=== PATIENT | female | born 1995 | race African-American/Black ===

== ENCOUNTER 2017-12-24 22:05 | Emergency (ER) | payer BC ==
[2017-12-24 23:22] LABS: Urine Blood NEGATIVE (NEG); Urine Glucose NEGATIVE (NEG); Urine Protein NEGATIVE (NEG)
[2017-12-24] MEDS ORDERED: CEFTRIAXONE 250 MG/VIAL ONE (23:40)
[2017-12-24] MEDS ORDERED: AZITHROMYCIN 250 MG TAB ONE (23:40)
[2017-12-24] MEDS ORDERED: WATER FOR INJ,STERILE 10 ML ONE (23:45)
--- NOTE | 2017-12-24 23:52 | ER ---
Nurse's Notes [facility] Name: Adi Sawant Age: 22 yrs Sex: Female : 1995 Arrival Date: 12/24/2017 Time: 22:10 Bed 24 Private MD: Diagnosis: vaginal discharge Presentation: 12/24 22:35 Presenting complaint: Patient states: she has vaginal discharge with a foul odor since bb last Wednesday also has suprapubic pain denies burning or frequency with urination. Transition of care: patient was not received from another setting of care. Onset of symptoms was December 18, 2017. Initial Sepsis Screen: Does the patient meet any 2 criteria? No. Patient's initial sepsis screen is negative. Does the patient have a suspected source of infection? No. Patient's initial sepsis screen is negative. Care prior to arrival: None. 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 - Social history:: Smoking status: Patient/guardian denies using tobacco, Patient uses alcohol, occasionally. Patient/guardian denies using street drugs. Screenin:52 Abuse screen: Denies threats or abuse. Nutritional screening: No deficits noted. aj1 Tuberculosis screening: No symptoms or risk factors identified. Fall Risk None identified. Assessment: 23:52 General: Appears in no apparent distress. comfortable, Behavior is calm, cooperative, aj1 appropriate for age. Pain: Denies pain. Neuro: Level of Consciousness is awake, alert, obeys commands, Oriented to person, place, time, situation. Cardiovascular: Denies chest pain, Heart tones S1 S2 present. Respiratory: Airway is patent Breath sounds are clear bilaterally. GI: Bowel sounds present X 4 quads. Abd is soft and non tender X 4 quads. : Parent/caregiver report the patient having discharge white. EENT: No deficits noted. Derm: No deficits noted. Musculoskeletal: No deficits noted. Vital Signs: 22:39 BP 121 / 75; Pulse 84; Resp 16 S; Temp 99.0(O); Pulse Ox 100% on R/A; Weight 72.57 kg bb (R); Height 5 ft. 10 in. (177.80 cm) (R); Pain 5/10; 23:56 BP 127 / 99; Pulse 88; Resp 18; Pulse Ox 100% ; Pain 0/10; aj1 12/25 00:05 BP 101 / 62; Pulse 88; Resp 18; Pulse Ox 98% ; Pain 0/10; ag2 12/24 22:39 Body Mass Index 22.96 (72.57 kg, 177.80 cm) ED Course: 12/24 22:10 Patient arrived in ED. ds1 22:29 Sana Laurent is Primary Nurse. ag2 22:39 Triage completed. bb 22:39 Arm band placed on Patient placed in an exam room, in a wheelchair, on pulse oximetry. bb 22:59 Adalberto Mckeon MD is Attending Physician. ps1 23:52 Patient has correct armband on for positive identification. Bed in low position. Call aj1 light in reach. Side rails up X2. 23:52 Assist provider with pelvic exam: Set up pelvic tray. Performed by Adalberto aguirre1 Specimens sent to lab. Patient tolerated well. Patient did not have IV access during this emergency room visit. Administered Medications: 23:50 Drug: AZITHromycin 1 grams Route: PO; aj1 12/25 00:05 Follow up: Response: No adverse reaction ag2 12/24 23:51 Drug: Rocephin (cefTRIAXone) 250 mg Route: IM; Site: left gluteus; aj1 12/25 00:06 Follow up: Response: No adverse reaction ag2 Outcome: 12/24 23:51 Discharge ordered by . ps1 12/25 00:07 Discharged to home ag2 Condition: good Discharge instructions given to patient, Instructed on discharge instructions, follow up and referral plans. medication usage, Demonstrated understanding of instructions, follow-up care, medications. 00:42 Patient left the ED. ag2 Signatures: Ilene Campos, RN RN aj1 Reyna Dang ds1 Alea Torre RN RN bb Singer, Phillip, MD MD ps1 Sana Laurent ag2
--- NOTE | 2017-12-24 23:52 | EDPHYS ---
Physician Documentation [facility] Name: Adi Sawant Age: 22 yrs Sex: Female : 1995 Arrival Date: 12/24/2017 Time: 22:10 Bed 24 Private MD: ED Physician Adalberto Mckeon HPI: 12/24 23:12 This 22 yrs old Black Female presents to ER via Ambulatory with complaints of Abdominal ps1 Pain. 23:12 The patient presents with a possible exposure to a sexually transmitted disease. Onset: ps1 The symptoms/episode began/occurred 2 day(s) ago. Associated signs and symptoms: Pertinent positives: vaginal discharge. The patient is sexually active, reports engaging in intercourse with a new partner, does not use protection during intercourse. 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 - Social history:: Smoking status: Patient/guardian denies using tobacco, Patient uses alcohol, occasionally. Patient/guardian denies using street drugs. ROS: 23:12 Constitutional: Negative for fever, chills, and weight loss, Eyes: Negative for injury, ps1 pain, redness, and discharge, ENT: Negative for injury, pain, and discharge, Cardiovascular: Negative for chest pain, palpitations, and edema, Respiratory: Negative for shortness of breath, cough, wheezing, and pleuritic chest pain, Abdomen/GI: Negative for abdominal pain, nausea, vomiting, diarrhea, and constipation. 23:12 Skin: Negative for injury, rash, and discoloration, Neuro: Negative for headache, weakness, numbness, tingling, and seizure. 23:12 : Positive for vaginal discharge. Exam: 23:12 Constitutional: This is a well developed, well nourished patient who is awake, alert, ps1 and in no acute distress. Head/Face: Normocephalic, atraumatic. Chest/axilla: Normal chest wall appearance and motion. Nontender with no deformity. No lesions are appreciated. Cardiovascular: Regular rate and rhythm. No gallops, murmurs, or rubs. Normal PMI, no JVD. No pulse deficits. Respiratory: Lungs have equal breath sounds bilaterally, clear to auscultation and percussion. No rales, rhonchi or wheezes noted. No increased work of breathing, no retractions or nasal flaring. Abdomen/GI: Soft, non-tender, with normal bowel sounds. No distension or tympany. No guarding or rebound. No evidence of tenderness throughout. Back: No spinal tenderness. No costovertebral tenderness. Full range of motion. 23:12 : Pelvic Exam: External exam: is normal, Speculum exam: no cervicitis, bimanual exam reveals normal findings, no cervical motion tenderness, no adnexa tenderness or masses bilaterally, discharge, white, the nurse was present for the exam. Vital Signs: 22:39 BP 121 / 75; Pulse 84; Resp 16 S; Temp 99.0(O); Pulse Ox 100% on R/A; Weight 72.57 kg bb (R); Height 5 ft. 10 in. (177.80 cm) (R); Pain 5/10; 23:56 BP 127 / 99; Pulse 88; Resp 18; Pulse Ox 100% ; Pain 0/10; aj1 12/25 00:05 BP 101 / 62; Pulse 88; Resp 18; Pulse Ox 98% ; Pain 0/10; ag2 12/24 22:39 Body Mass Index 22.96 (72.57 kg, 177.80 cm) bb MDM: 12/24 23:28 Patient medically screened. ps1 23:52 Data reviewed: lab test result(s). ED course: treated for suspected STD. Wetprep ps1 negative. . 12/24 22:43 Order name: Urine Dipstick--Ancillary (enter results); Complete Time: 23:28 2 12/24 22:43 Order name: Urine --Ancillary (enter results); Complete Time: 23:28 rg2 12/24 23:09 Order name: GC (GONORR/CHLAMYDIA) Probe ps1 12/24 23:09 Order name: Wet Prep; Complete Time: 23:47 ps1 12/24 23:09 Order name: Pelvic Exam Setup; Complete Time: 00:06 ps1 Administered Medications: 23:50 Drug: AZITHromycin 1 grams Route: PO; [facility] 12/25 00:05 Follow up: Response: No adverse reaction [facility] 12/24 23:51 Drug: Rocephin (cefTRIAXone) 250 mg Route: IM; Site: left gluteus; aj1 12/25 00:06 Follow up: Response: No adverse reaction ag2 Disposition: 12/24/17 23:51 Discharged to Home. Impression: vaginal discharge. - Condition is Stable. - Discharge Instructions: Sexually Transmitted Disease, [id number]. - Medication Reconciliation Form, Thank You Letter, Antibiotic Education, Prescription Opioid Use form. - Follow up: Private Physician; When: As needed; Reason: Recheck today's complaints, Continuance of care, Re-evaluation by your physician. Follow up: Emergency Department; When: As needed; Reason: Fever > 102 F, Worsening of condition. - Problem is new. - Symptoms are unchanged. Signatures: Dispatcher [employer] Ilene Barker, RN SABRINA aj1 Alea Torre RN RN bb Adalberto Mckeon MD MD ps1 Garcia, Athena ag2
[2017-12-31 08:53] LABS: C.trachomatis RNA,TMA ND
== END 2017-12-25 00:42 | disposition home or self-care (01) ==
LOC: ER 22:05
DX: N89.8 Other specified noninflammatory disorders of vagina (principal)
CPT/HCPCS: 81003; 81025; 87210; 87490; 87590; 96372; 99284; J0696

== ENCOUNTER 2018-04-25 19:32 | Emergency (ER) | payer BC, OTHER ==
[2018-04-25] MEDS ORDERED: WATER FOR INJ,STERILE 10 ML ONE (20:18)
[2018-04-25] MEDS ORDERED: metroNIDAZOLE 500 MG TABLET ONE (20:18)
[2018-04-25] MEDS ORDERED: CEFTRIAXONE 250 MG/VIAL ONE (20:18)
[2018-04-25] MEDS ORDERED: AZITHROMYCIN 250 MG TAB ONE (20:18)
--- NOTE | 2018-04-25 20:27 | EDPHYS ---
Physician Documentation [facility] Name: Adi Sawant Age: 22 yrs Sex: Female : 1995 Arrival Date: 04/25/2018 Time: 19:34 Bed 9 Private MD: ED Physician Elliot Lu HPI: 04/25 20:02 This 22 yrs old Black Female presents to ER via Ambulatory with complaints of vaginal jr8 odor . 20:02 Patient stated that she has had vaginal odor for about 1 week post intercourse. Denies jr8 discharge or urinary complaints. Recent depo shot and has had some cramping . Severity of symptoms: At their worst the symptoms were mild in the emergency department the symptoms are unchanged. The patient has experienced a previous episode. The patient has not recently seen a physician. 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 - Social history:: Smoking status: Patient/guardian denies using tobacco, Patient uses street drugs, marijuana. - Ebola Screening: : No symptoms or risks identified at this time. ROS: 20:02 Eyes: Negative for injury, pain, redness, and discharge, ENT: Negative for injury, jr8 pain, and discharge, Neck: Negative for injury, pain, and swelling, Cardiovascular: Negative for chest pain, palpitations, and edema, Respiratory: Negative for shortness of breath, cough, wheezing, and pleuritic chest pain, Back: Negative for injury and pain, MS/Extremity: Negative for injury and deformity, Skin: Negative for injury, rash, and discoloration, Neuro: Negative for headache, weakness, numbness, tingling, and seizure. 20:02 Abdomen/GI: Positive for abdominal cramps, Negative for nausea, vomiting, diarrhea, constipation, abdominal distension, anorexia, dysphagia, hematemesis, black/tarry stool, rectal pain, rectal bleeding, bowel incontinence, flatulence. 20:02 : Positive for vaginal odor, Negative for urinary symptoms, urinary frequency, small amounts, hematuria, pelvic pain, burning with urination, vaginal bleeding, vaginal discharge, vaginal itching, menstrual abnormality. Exam: 20:02 Eyes: Pupils equal round and reactive to light, extra-ocular motions intact. Lids and jr8 lashes normal. Conjunctiva and sclera are non-icteric and not injected. Cornea within normal limits. Periorbital areas with no swelling, redness, or edema. ENT: Nares patent. No nasal discharge, no septal abnormalities noted. Tympanic membranes are normal and external auditory canals are clear. Oropharynx with no redness, swelling, or masses, exudates, or evidence of obstruction, uvula midline. Mucous membranes moist. Neck: Trachea midline, no thyromegaly or masses palpated, and no cervical lymphadenopathy. Supple, full range of motion without nuchal rigidity, or vertebral point tenderness. No Meningismus. Cardiovascular: Regular rate and rhythm with a normal S1 and S2. No gallops, murmurs, or rubs. Normal PMI, no JVD. No pulse deficits. Respiratory: Lungs have equal breath sounds bilaterally, clear to auscultation and percussion. No rales, rhonchi or wheezes noted. No increased work of breathing, no retractions or nasal flaring. Abdomen/GI: Soft, non-tender, with normal bowel sounds. No distension or tympany. No guarding or rebound. No evidence of tenderness throughout. Back: No spinal tenderness. No costovertebral tenderness. Full range of motion. Skin: Warm, dry with normal turgor. Normal color with no rashes, no lesions, and no evidence of cellulitis. MS/ Extremity: Pulses equal, no cyanosis. Neurovascular intact. Full, normal range of motion. Neuro: Awake and alert, GCS 15, oriented to person, place, time, and situation. Cranial nerves II-XII grossly intact. Motor strength 5/5 in all extremities. Sensory grossly intact. Cerebellar exam normal. Normal gait. Vital Signs: 19:54 BP 123 / 80; Pulse 72; Resp 16; Temp 98.8(O); Pulse Ox 96% on R/A; Weight 68.04 kg (R); ak1 Height 5 ft. 10 in. (177.80 cm) (R); Pain 2/10; 19:54 Body Mass Index 21.52 (68.04 kg, 177.80 cm) ak1 MDM: 19:59 Patient medically screened. jr8 20:25 Data reviewed: vital signs, nurses notes, lab test result(s), and as a result, I will jr8 discharge patient. Data interpreted: Pulse oximetry: on room air is 96 %. Interpretation: normal. Counseling: I had a detailed discussion with the patient and/or guardian regarding: the historical points, exam findings, and any diagnostic results supporting the discharge/admit diagnosis, lab results, the need for outpatient follow up, a family practitioner, to return to the emergency department if symptoms worsen or persist or if there are any questions or concerns that arise at home. 04/25 20:01 Order name: GC (GONORR/CHLAMYDIA) Probe [facility] 04/25 20:01 Order name: Urine Dipstick-Ancillary (obtain specimen); Complete Time: 20:19 [facility] 04/25 20:01 Order name: Urine Test (obtain specimen); Complete Time: 20:19 [facility] Administered Medications: 20:18 Drug: Flagyl 2 grams Route: PO; aj 20:31 Follow up: Response: No adverse reaction aj 20:19 Drug: Zithromax 1 grams Route: PO; aj 20:31 Follow up: Response: No adverse reaction aj 20:19 Drug: Rocephin (cefTRIAXone) 250 mg Route: IM; Site: right gluteus; aj 20:31 Follow up: Response: No adverse reaction aj Disposition: 04/25/18 20:26 Discharged to Home. Impression: STD Prophylaxis . - Condition is Stable. - Discharge Instructions: Bacterial Vaginosis, Sexually Transmitted Disease. - Medication Reconciliation Form, Thank You Letter, Antibiotic Education, Prescription Opioid Use form. - Follow up: Private Physician; When: As needed; Reason: Recheck today's complaints, Continuance of care, Re-evaluation by your physician. - Problem is new. - Symptoms have improved. Addendum: 04/27/2018 05:28 Co-signature as Attending Physician, Elliot Lu MD I agree with the assessment and t w4 plan of care. Attestation: The patient's history, exam findings, diagnostics, and a summary of any interventions or procedures was reviewed in detail with Lucien ODELL. Signatures: Dispatcher [employer] Wilda Masters RN Lucien Ram PA PA jr8 Margoth Martinez RN RN [email or web address] Elliot Lu MD MD tw4 Corrections: (The following items were deleted from the chart) 04/25 20:31 20:26 04/25/2018 20:26 Discharged to Home. Impression: STD Prophylaxis . Condition is aj Stable. Forms are Medication Reconciliation Form, Thank You Letter, Antibiotic Education, Prescription Opioid Use. Follow up: Private Physician; When: As needed; Reason: Recheck today's complaints, Continuance of care, Re-evaluation by your physician. Problem is new. Symptoms have improved. jr8
--- NOTE | 2018-04-25 20:27 | ER ---
Nurse's Notes [facility] Name: Adi Sawant Age: 22 yrs Sex: Female : 1995 Arrival Date: 04/25/2018 Time: 19:34 Bed 9 Private MD: Diagnosis: STD Prophylaxis Presentation: 04/25 19:51 Presenting complaint: Patient states: vaginal odor X1 weeks s/p sex intercourse. pt ak1 denies vaginal discharge, no vaginal bleeding. pt c/o abd cramps intermittent. Transition of care: patient was not received from another setting of care. Onset of symptoms is unknown. Risk Assessment: Do you want to hurt yourself or someone else? Patient reports no desire to harm self or others. Initial Sepsis Screen: Does the patient meet any 2 criteria? No. Patient's initial sepsis screen is negative. Does the patient have a suspected source of infection? No. Patient's initial sepsis screen is negative. Care prior to arrival: None. 19:51 Method Of Arrival: Ambulatory ak1 19:51 Acuity: CARROL 4 ak1 Triage Assessment: 19:54 General: Appears in no apparent distress. Behavior is calm, cooperative. Pain: Denies ak1 pain. EENT: No signs and/or symptoms were reported regarding the EENT system. Neuro: No deficits noted. Cardiovascular: No deficits noted. Respiratory: No deficits noted. GI: Reports cramping. : Reports vaginal odor. Patient is sexually active Method of control is depo shot. Derm: No signs and/or symptoms reported regarding the dermatologic system. Musculoskeletal: No signs and/or symptoms reported regarding the musculoskeletal system. 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 - Social history:: Smoking status: Patient/guardian denies using tobacco, Patient uses street drugs, marijuana. - Ebola Screening: : No symptoms or risks identified at this time. Screenin:56 Abuse screen: Denies threats or abuse. Denies injuries from another. Nutritional ak1 screening: No deficits noted. Tuberculosis screening: No symptoms or risk factors identified. Fall Risk None identified. Assessment: 20:19 General: Appears in no apparent distress. comfortable, Behavior is calm, cooperative, aj appropriate for age. Neuro: Level of Consciousness is awake, alert, obeys commands, Oriented to person, place, time, situation, Appropriate for age. Respiratory: Airway is patent Respiratory effort is even, unlabored, Respiratory pattern is regular, symmetrical. GI: Abdomen is flat, non-distended, Bowel sounds present X 4 quads. Abd is soft and non tender. : Reports vaginal odor. Derm: Skin is intact, is healthy with good turgor, Skin is pink, warm \T\ dry. normal. Vital Signs: 19:54 BP 123 / 80; Pulse 72; Resp 16; Temp 98.8(O); Pulse Ox 96% on R/A; Weight 68.04 kg (R); ak1 Height 5 ft. 10 in. (177.80 cm) (R); Pain 2/10; 19:54 Body Mass Index 21.52 (68.04 kg, 177.80 cm) ak1 ED Course: 19:34 Patient arrived in ED. ds1 19:53 Triage completed. ak1 19:54 Arm band placed on Patient placed in an exam room, on a stretcher, Patient notified of ak1 wait time. 19:56 Patient has correct armband on for positive identification. ak1 19:59 Lucien Pagan PA is PHCP. jr8 19:59 Elliot Lu MD is Attending Physician. jr8 20:05 Wilda Roy, SABRINA is Primary Nurse. aj 20:21 No provider procedures requiring assistance completed. Patient did not have IV access aj during this emergency room visit. Administered Medications: 20:18 Drug: Flagyl 2 grams Route: PO; aj 20:31 Follow up: Response: No adverse reaction aj 20:19 Drug: Zithromax 1 grams Route: PO; aj 20:31 Follow up: Response: No adverse reaction aj 20:19 Drug: Rocephin (cefTRIAXone) 250 mg Route: IM; Site: right gluteus; aj 20:31 Follow up: Response: No adverse reaction aj Outcome: 20:26 Discharge ordered by . jr8 20:30 Discharged to home ambulatory. aj 20:30 Condition: good 20:30 Discharge instructions given to patient, Instructed on discharge instructions, follow up and referral plans. safe sex practices, Demonstrated understanding of instructions, follow-up care. 20:31 Patient left the ED. carla Signatures: Wilda Roy, RN RN Reyna Weathers ds1 Lucien Pagan PA PA jr8 Margoth Martinez RN RN ak1
[2018-04-25 21:43] LABS: Urine Blood NEGATIVE (NEG); Urine Glucose NEGATIVE (NEG); Urine Protein NEGATIVE (NEG)
[2018-04-28 12:13] LABS: C.trachomatis RNA,TMA Not Detected (Not Detected)
== END 2018-04-25 20:31 | disposition home or self-care (01) ==
LOC: ER 19:32
DX: A64 Unspecified sexually transmitted disease (principal)
CPT/HCPCS: 81003; 81025; 87490; 87590; 96372; 99283; J0696

== ENCOUNTER 2018-11-24 13:37 | Emergency (ER) | payer OTHER, SELFPAY ==
--- NOTE | 2018-11-24 14:29 | ER ---
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 Transition of care: patient was not received from another setting of care. Onset of symptoms was November 23, 2018. Risk Assessment: Do you want to hurt yourself or someone else? Patient reports no desire to harm self or others. Care prior to arrival: None. 13:54 Method Of Arrival: Ambulatory hb 13:54 Acuity: CARROL 4 hb Historical: - Allergies: 13:55 No Known Allergies; hb - PMHx: 13:55 None; hb - PSHx: 13:55 None; hb - Immunization history:: Adult Immunizations up to date. - Social history:: Smoking status: Patient/guardian denies using tobacco. - Ebola Screening: : No symptoms or risks identified at this time. Screenin:26 Abuse screen: Denies threats or abuse. Denies injuries from another. Nutritional ss screening: No deficits noted. Tuberculosis screening: No symptoms or risk factors identified. Never had TB. Fall Risk None identified. Assessment: 14:26 General: Appears in no apparent distress. comfortable, Behavior is calm, cooperative. ss Pain: Complains of pain in upper lip Pain currently is 4 out of 10 on a pain scale. Neuro: Level of Consciousness is awake, alert, obeys commands, Oriented to person, place, time, situation. Cardiovascular: Capillary refill < 3 seconds is brisk in bilateral fingers. Respiratory: Airway is patent Respiratory effort is even, unlabored, Respiratory pattern is regular, symmetrical. EENT: Nares are clear Oral mucosa is moist. Throat is clear. Derm: Skin is intact, is healthy with good turgor, Skin is dry, Skin is pink, warm \T\ dry. normal. Musculoskeletal: Circulation, motion, and sensation intact. Range of motion: intact in all extremities, Swelling absent. Vital Signs: 13:54 BP 124 / 72; Pulse 78; Resp 16; Temp 97.9; Pulse Ox 100% on R/A; Weight 78.93 kg; hb Height 5 ft. 10 in. (177.80 cm); Pain 4/10; 13:54 Body Mass Index 24.97 (78.93 kg, 177.80 cm) hb ED Course: 13:38 Patient arrived in ED. as 13:54 Triage completed. hb 13:55 Arm band placed on. hb 14:07 Keila Cardona FNP-C is [facility]. kb 14:07 Jorge Iraheta MD is Attending Physician. kb 14:26 Patient has correct armband on for positive identification. Bed in low position. Call ss light in reach. 14:26 No provider procedures requiring assistance completed. Patient did not have IV access ss during this emergency room visit. Administered Medications: No medications were administered Outcome: 14:28 Discharge ordered by . kb 14:36 Patient left the ED. ss Signatures: Keila Cardona FNP-C FNP-Ckb Martinez, Amelia as Carolyne Bonds RN RN Kasandra Duncan RN RN hb
--- NOTE | 2018-11-24 14:29 | EDPHYS ---
Physician Documentation [facility] Name: Adi Sawant Age: 23 yrs Sex: Female : 1995 Arrival Date: 11/24/2018 Time: 13:38 Bed 9 Private MD: ED Physician Jorge Iraheta HPI: 11/24 14:23 This 23 yrs old Black Female presents to ER via Ambulatory with complaints of Cold Sore.kb 14:23 The patient's rash thought to be caused by cold sore. The rash is located on the upper kb lip. The rash can be described as vesicular. Onset: The symptoms/episode began/occurred yesterday. Associated signs and symptoms: Pertinent positives: burning sensation, Pertinent negatives: difficulty breathing, fever, itching, nausea, Pain swelling of lips, swelling of throat, swelling of tongue, vomiting, wheezing. Severity of symptoms: At their worst the symptoms were mild in the emergency department the symptoms are unchanged. The patient has experienced similar episodes in the past. The patient has not recently seen a physician. Pt reports she gets cold sores a lot and one developed last night so she wanted to see if she could get something for it.. Historical: - Allergies: 13:55 No Known Allergies; hb - PMHx: 13:55 None; hb - PSHx: 13:55 None; hb - Immunization history:: Adult Immunizations up to date. - Social history:: Smoking status: Patient/guardian denies using tobacco. - Ebola Screening: : No symptoms or risks identified at this time. ROS: 14:23 Constitutional: Negative for fever, chills, and weight loss, Cardiovascular: Negative kb for chest pain, palpitations, and edema, Respiratory: Negative for shortness of breath, cough, wheezing, and pleuritic chest pain, Abdomen/GI: Negative for abdominal pain, nausea, vomiting, diarrhea, and constipation, MS/Extremity: Negative for injury and deformity, Neuro: Negative for headache, weakness, numbness, tingling, and seizure. 14:23 Skin: Positive for of the upper lip, cold sore. Exam: 14:24 Constitutional: This is a well developed, well nourished patient who is awake, alert, kb and in no acute distress. Head/Face: Normocephalic, atraumatic. Chest/axilla: Normal chest wall appearance and motion. Nontender with no deformity. No lesions are appreciated. Cardiovascular: Regular rate and rhythm with a normal S1 and S2. No gallops, murmurs, or rubs. Normal PMI, no JVD. No pulse deficits. Respiratory: Lungs have equal breath sounds bilaterally, clear to auscultation and percussion. No rales, rhonchi or wheezes noted. No increased work of breathing, no retractions or nasal flaring. Abdomen/GI: Soft, non-tender, with normal bowel sounds. No distension or tympany. No guarding or rebound. No evidence of tenderness throughout. MS/ Extremity: Pulses equal, no cyanosis. Neurovascular intact. Full, normal range of motion. Neuro: Awake and alert, GCS 15, oriented to person, place, time, and situation. Cranial nerves II-XII grossly intact. Motor strength 5/5 in all extremities. Sensory grossly intact. Cerebellar exam normal. Normal gait. 14:24 Skin: consistent with herpes simplex type 1, on the upper lip. Vital Signs: 13:54 BP 124 / 72; Pulse 78; Resp 16; Temp 97.9; Pulse Ox 100% on R/A; Weight 78.93 kg; hb Height 5 ft. 10 in. (177.80 cm); Pain 4/10; 13:54 Body Mass Index 24.97 (78.93 kg, 177.80 cm) hb MDM: 14:07 Patient medically screened. kb 14:25 Data reviewed: vital signs, nurses notes. Data interpreted: Pulse oximetry: on room air kb is 100 %. Interpretation: normal. Counseling: I had a detailed discussion with the patient and/or guardian regarding: the historical points, exam findings, and any diagnostic results supporting the discharge/admit diagnosis, the need for outpatient follow up, a family practitioner, to return to the emergency department if symptoms worsen or persist or if there are any questions or concerns that arise at home. Administered Medications: No medications were administered Disposition: 15:03 Co-signature as Attending Physician, Keila RUSS I agree with the assessment kdr and plan of care. Disposition: 11/24/18 14:28 Discharged to Home. 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 - Condition is Stable. - Discharge Instructions: Cold Sore, [id number]. - Work release form, Medication Reconciliation Form, Thank You Letter, Antibiotic Education, Prescription Opioid Use form. - Follow up: Emergency Department; When: As needed; Reason: Worsening of condition. Follow up: Private Physician; When: 2 - 3 days; Reason: Recheck today's complaints, Continuance of care, Re-evaluation by your physician. Signatures: Keila Cardona, URGENT CARE NURSE PRACTITIONER-C URGENT CARE NURSE PRACTITIONER-Edgardob Jorge Iraheta MD MD [facility] Carolyne Bonds RN RN Kasandra Duncan RN RN Corrections: (The following items were deleted from the chart) 14:36 14:28 11/24/2018 14:28 Discharged to Home. Impression: Herpesviral [herpes simplex] ss infections - HSV Type 1. Condition is Stable. Forms are Medication Reconciliation Form, Thank You Letter, Antibiotic Education, Prescription Opioid Use. Follow up: Emergency Department; When: As needed; Reason: Worsening of condition. Follow up: Private Physician; When: 2 - 3 days; Reason: Recheck today's complaints, Continuance of care, Re-evaluation by your physician. kb
== END 2018-11-24 14:36 | disposition home or self-care (01) ==
LOC: ER 13:37
DX: B00.1 Herpesviral vesicular dermatitis (principal)
CPT/HCPCS: 99281

== ENCOUNTER 2019-07-28 09:03 | Emergency (ER) | payer SELFPAY ==
--- OUTSIDE RECORDS SUMMARY | 2019-07-28 09:06 | XMS REPORT ---
:1995 [facility] Address [address] [place] [address] Dr. Roe [address] [place] [id number] Care Team Providers Name Role Phone Unavailable Unavailable Unavailable Problems This patient has no known problems. Allergies, Adverse Reactions, Alerts This patient has no known allergies or adverse reactions. Medications This patient has no known medications.
--- NOTE | 2019-07-28 11:05 | ER ---
Nurse's Notes [facility] Name: Adi Sawant Age: 23 yrs Sex: Female : 1995 Arrival Date: 07/28/2019 Time: 09:04 Bed 18 Private MD: Diagnosis: Diarrhea, unspecified Presentation: 07/28 09:18 Presenting complaint: Cough, diarrhea, chills, headache, malaise, abdominal cramping, hb nausea, and subjective fever x 1 month, worse over the last week. Transition of care: patient was not received from another setting of care. Onset of symptoms was June 2019. Risk Assessment: Do you want to hurt yourself or someone else? Patient reports no desire to harm self or others. Initial Sepsis Screen: Does the patient meet any 2 criteria? No. Patient's initial sepsis screen is negative. Does the patient have a suspected source of infection? No. Patient's initial sepsis screen is negative. Care prior to arrival: None. 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 - Social history:: Smoking status: Patient/guardian denies using tobacco. - Ebola Screening: : No symptoms or risks identified at this time. Screenin:47 Abuse screen: Denies threats or abuse. Nutritional screening: No deficits noted. em Tuberculosis screening: No symptoms or risk factors identified. Fall Risk None identified. Assessment: 10:20 General: Appears in no apparent distress. comfortable, Behavior is calm, cooperative, em Reports fever for about a month. Pain: Complains of pain in right lower quadrant and left lower quadrant Pain currently is 8 out of 10 on a pain scale. Neuro: Level of Consciousness is awake, alert, obeys commands, Oriented to person, place, time, situation, Appropriate for age. Cardiovascular: Capillary refill < 3 seconds Patient's skin is warm and dry. Respiratory: Reports cough that is non-productive, Airway is patent Respiratory effort is even, Respiratory pattern is regular, symmetrical. GI: Abdomen is flat, Bowel sounds present X 4 quads. Abd is soft X 4 quads Abdomen is tender to palpation in right lower quadrant and left lower quadrant Reports diarrhea, nausea. : Urine is clear, Denies burning with urination. Derm: Skin is intact, is healthy with good turgor, Skin is pink, warm \T\ dry. Musculoskeletal: Capillary refill < 3 seconds, Range of motion: intact in all extremities. 10:25 Reassessment: I agree with previous assessment. hb Vital Signs: 09:20 BP 127 / 79; Pulse 88; Resp 16; Temp 99.5(TE); Pulse Ox 100% on R/A; Weight 77.11 kg; hb Height 5 ft. 11 in. (180.34 cm); Pain 8/10; 11:20 BP 116 / 75; Pulse 74; Resp 18; Pulse Ox 99% on R/A; em 09:20 Body Mass Index 23.71 (77.11 kg, 180.34 cm) hb ED Course: 09:04 Patient arrived in ED. am2 09:19 Triage completed. hb 09:20 Arm band placed on. hb 09:23 Yossi Emerson LVN is Primary Nurse. em 09:37 Marilee Trujillo FNP-C is PHCP. snw 09:37 Jorge Iraheta MD is Attending Physician. snw 10:47 Patient has correct armband on for positive identification. Bed in low position. Call em light in reach. 10:47 Urine collected: clean catch specimen, clear. em 11:19 No provider procedures requiring assistance completed. Patient did not have IV access em during this emergency room visit. Administered Medications: No medications were administered Outcome: 11:03 Discharge ordered by . snw 11:19 Discharged to home ambulatory. em 11:19 Condition: good 11:19 Discharge instructions given to patient, Instructed on discharge instructions, follow up and referral plans. medication usage, Demonstrated understanding of instructions, follow-up care, medications, Prescriptions given X 1. 11:20 Patient left the ED. em Signatures: Marilee Trujillo FNP-C BONE DENSITY TECHNICIAN-Csnw Yossi Emerson LVN DECK SCALER em Kasandra Duncan RN RN Wilda Banda am2 Corrections: (The following items were deleted from the chart) 09:20 09:18 Presenting complaint: Cough, diarrhea, abdominal cramping, nausea, and subjective hb fever x 1 month, worse over the last week. hb
--- NOTE | 2019-07-28 11:06 | EDPHYS ---
Physician Documentation [facility] Name: Adi Sawant Age: 23 yrs Sex: Female : 1995 Arrival Date: 07/28/2019 Time: 09:04 Bed 18 Private MD: ED Physician Jorge Iraheta HPI: 07/28 10:29 This 23 yrs old Black Female presents to ER via Ambulatory with complaints of Abdominal snw Pain, Diarrhea, Cough. 10:29 The patient presents with abdominal pain in the lower abdomen. Onset: The snw symptoms/episode began/occurred gradually, and became persistent 1 months ago. The symptoms do not radiate. Associated signs and symptoms: Pertinent positives: diarrhea. The symptoms are described as crampy. Severity of pain: At its worst the pain was mild. It is unknown whether or not the patient has had similar symptoms in the past. The patient has not recently seen a physician. 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 - Social history:: Smoking status: Patient/guardian denies using tobacco. - Ebola Screening: : No symptoms or risks identified at this time. ROS: 10:25 Constitutional: Negative for fever, chills, and weight loss, Eyes: Negative for injury, snw pain, redness, and discharge, ENT: Negative for injury, pain, and discharge, Neck: Negative for injury, pain, and swelling, Cardiovascular: Negative for chest pain, palpitations, and edema, Respiratory: Negative for shortness of breath, cough, wheezing, and pleuritic chest pain. 10:25 Back: Negative for injury and pain, : Negative for injury, bleeding, discharge, and swelling, MS/Extremity: Negative for injury and deformity, Skin: Negative for injury, rash, and discoloration, Neuro: Negative for headache, weakness, numbness, tingling, and seizure, Psych: Negative for depression, anxiety, suicide ideation, homicidal ideation, and hallucinations. 10:25 Abdomen/GI: Positive for diarrhea, Negative for black/tarry stool, rectal pain, rectal bleeding. Exam: 10:25 Constitutional: This is a well developed, well nourished patient who is awake, alert, snw and in no acute distress. Head/Face: Normocephalic, atraumatic. Eyes: Pupils equal round and reactive to light, extra-ocular motions intact. Lids and lashes normal. Conjunctiva and sclera are non-icteric and not injected. Cornea within normal limits. Periorbital areas with no swelling, redness, or edema. ENT: Nares patent. No nasal discharge, no septal abnormalities noted. Tympanic membranes are normal and external auditory canals are clear. Oropharynx with no redness, swelling, or masses, exudates, or evidence of obstruction, uvula midline. Mucous membranes moist. Neck: Trachea midline, no thyromegaly or masses palpated, and no cervical lymphadenopathy. Supple, full range of motion without nuchal rigidity, or vertebral point tenderness. No Meningismus. Chest/axilla: Normal chest wall appearance and motion. Nontender with no deformity. No lesions are appreciated. Cardiovascular: Regular rate and rhythm with a normal S1 and S2. No gallops, murmurs, or rubs. Normal PMI, no JVD. No pulse deficits. Respiratory: Lungs have equal breath sounds bilaterally, clear to auscultation and percussion. No rales, rhonchi or wheezes noted. No increased work of breathing, no retractions or nasal flaring. Abdomen/GI: Soft, non-tender, with normal bowel sounds. No distension or tympany. No guarding or rebound. No evidence of tenderness throughout. Back: No spinal tenderness. No costovertebral tenderness. Full range of motion. Skin: Warm, dry with normal turgor. Normal color with no rashes, no lesions, and no evidence of cellulitis. MS/ Extremity: Pulses equal, no cyanosis. Neurovascular intact. Full, normal range of motion. Neuro: Awake and alert, GCS 15, oriented to person, place, time, and situation. Cranial nerves II-XII grossly intact. Motor strength 5/5 in all extremities. Sensory grossly intact. Cerebellar exam normal. Normal gait. Psych: Awake, alert, with orientation to person, place and time. Behavior, mood, and affect are within normal limits. Vital Signs: 09:20 BP 127 / 79; Pulse 88; Resp 16; Temp 99.5(TE); Pulse Ox 100% on R/A; Weight 77.11 kg; hb Height 5 ft. 11 in. (180.34 cm); Pain 8/10; 11:20 BP 116 / 75; Pulse 74; Resp 18; Pulse Ox 99% on R/A; em 09:20 Body Mass Index 23.71 (77.11 kg, 180.34 cm) hb MDM: 09:44 Patient medically screened. snw 10:30 Data reviewed: vital signs, nurses notes. Data interpreted: Pulse oximetry: on room air snw is 100 %. Interpretation: normal. Counseling: I had a detailed discussion with the patient and/or guardian regarding: the historical points, exam findings, and any diagnostic results supporting the discharge/admit diagnosis, lab results, the need for outpatient follow up, to return to the emergency department if symptoms worsen or persist or if there are any questions or concerns that arise at home. Special discussion: Based on the history and exam findings, there is no indication for further emergent testing or inpatient evaluation. I discussed with the patient/guardian the need to see the primary care provider for further evaluation of the symptoms. ED course: LMP last week. 07/28 09:38 Order name: Urine Culture snw 07/28 09:38 Order name: Urine Microscopic Only snw 07/28 09:38 Order name: Urine Test (obtain specimen); Complete Time: 10:41 snw 07/28 09:38 Order name: Urine Dipstick-Ancillary (obtain specimen); Complete Time: 10:41 snw 07/28 10:56 Order name: Urine Dipstick--Ancillary (enter results) 07/28 10:56 Order name: Urine --Ancillary (enter results); Complete Time: 11:02 hb 07/28 11:02 Interpretation: Within normal limits. snw Administered Medications: No medications were administered Disposition: 07/28/19 11:03 Discharged to Home. Impression: Diarrhea, unspecified. - Condition is Stable. - Discharge Instructions: Food Choices to Help Relieve Diarrhea, Adult, Diarrhea, Adult, Rehydration, Adult. - Prescriptions for Zofran 4 mg Oral Tablet - take 1 tablet by ORAL route every 12 hours As needed; 12 tablet. - Work release form, Medication Reconciliation Form, Thank You Letter, Antibiotic Education, Prescription Opioid Use form. - Follow up: Private Physician; When: 2 - 3 days; Reason: Recheck today's complaints, Continuance of care, Re-evaluation by your physician. Follow up: Emergency Department; When: As needed; Reason: Worsening of condition. Addendum: 07/31/2019 09:58 Co-signature as Attending Physician, Jorge Iraheta MD I agree with the assessment and k dr plan of care. Signatures: Dispatcher [employer] EDPR Jorge Iraheta MD MD [facility] Marilee Trujillo, ASSISTANT COUNSEL-C ASSISTANT COUNSEL-Csnw Yossi Emerson, FISH HATCHERY LABORER FISH HATCHERY LABORER em Kasandra Duncan, RN RN Corrections: (The following items were deleted from the chart) 07/28 11:20 11:03 07/28/2019 11:03 Discharged to Home. Impression: Diarrhea, unspecified. Condition em is Stable. Forms are Medication Reconciliation Form, Thank You Letter, Antibiotic Education, Prescription Opioid Use. Follow up: Private Physician; When: 2 - 3 days; Reason: Recheck today's complaints, Continuance of care, Re-evaluation by your physician. Follow up: Emergency Department; When: As needed; Reason: Worsening of condition. snw
[2019-07-28 11:31] LABS: Urine Bacteria NONE SEEN /HPF (<20); Urine Culture Reflex Order NOT NEEDED; Urine RBC <5 /HPF (NONE SEEN)
[2019-07-28 11:32] LABS: Urine Blood 2+ (NEG); Urine Glucose NEGATIVE (NEG); Urine Protein NEGATIVE (NEG)
[2019-07-28 18:41] VITALS: BP 116/75; O2SAT 99
[2019-07-28 18:42] VITALS: TEMP 99.5
== END 2019-07-28 11:20 | disposition home or self-care (01) ==
LOC: ER 09:03
DX: R19.7 Diarrhea, unspecified (principal)
CPT/HCPCS: 81003; 81015; 81025; 87086; 87088; 99283

== ENCOUNTER 2021-05-08 22:52 | Emergency (ER) | payer SELFPAY ==
--- OUTSIDE RECORDS SUMMARY | 2021-05-08 22:55 | XMS REPORT | Continuity of Care Document ---
:1995 Author Organization [facility] t Address [address] [place] [address] Dr. Roe [address] [place] [address] Care Team Providers Name Role Phone Unavailable Unavailable Unavailable Problems This patient has no known problems. Allergies, Adverse Reactions, Alerts This patient has no known allergies or adverse reactions. Medications This patient has no known medications. Procedures This patient has no known procedures. Results This patient has no known results.
[2021-05-09 00:08] LABS: SARS-COV-2 RT PCR NEGATIVE (NEGATIVE)
[2021-05-09 00:31] LABS: Urine Blood Trace-intact (Negative); Urine Glucose Negative (Negative); Urine Protein Negative (Negative); Urine pH 5.5 (5.0-7.0)
--- NOTE | 2021-05-09 01:37 | ER ---
Nurse's Notes [facility] Name: Adi Sawant Age: 25 yrs Sex: Female : 1995 Arrival Date: 05/08/2021 Time: 22:58 Bed 14 Private MD: Diagnosis: Viral syndrome Presentation: 05/08 23:13 Chief complaint: Patient states: chills, runny nose, back pain and headache since em yesterday, several people at work tested positive for covid. Coronavirus screen: chills, runny nose, Client presents with at least one sign or symptom that may indicate coronavirus-19. Standard/surgical mask placed on the client. Provider contacted for isolation considerations. Ebola Screen: Patient negative for fever greater than or equal to 101.5 degrees Fahrenheit, and additional compatible Ebola Virus Disease symptoms Patient denies exposure to infectious person. Patient denies travel to an Ebola-affected area in the 21 days before illness onset. No symptoms or risks identified at this time. Initial Sepsis Screen: Does the patient meet any 2 criteria? HR > 90 bpm. No. Patient's initial sepsis screen is negative. Does the patient have a suspected source of infection? No. Patient's initial sepsis screen is negative. Risk Assessment: Do you want to hurt yourself or someone else? Patient reports no desire to harm self or others. Onset of symptoms was May 08, 2021. 23:13 Method Of Arrival: Ambulatory em 23:13 Acuity: CARROL 4 em Historical: - Allergies: 23:14 No Known Allergies; em - PMHx: 23:14 None; em - PSHx: 23:14 None; em - Immunization history:: Client reports receiving the 2nd dose of the Covid vaccine. - Social history:: Smoking status: Patient denies any tobacco usage or history of. Screenin:13 Abuse screen: Denies threats or abuse. Nutritional screening: No deficits noted. em Tuberculosis screening: No symptoms or risk factors identified. Fall Risk None identified. Assessment: 05/09 00:40 General: Appears in no apparent distress. comfortable, Behavior is calm, cooperative, kc4 appropriate for age. Pain: Complains of pain in face, scalp and back Pain currently is 5 out of 10 on a pain scale. Quality of pain is described as aching, Pain began gradually, Is Alleviated by nothing. Neuro: No deficits noted. Neuro: No deficits noted. Cardiovascular: No deficits noted. Vital Signs: 05/08 23:13 BP 126 / 89; Pulse 103; Resp 20; Temp 98.6; Pulse Ox 99% on R/A; Weight 81.65 kg; em Height 5 ft. 11 in. (180.34 cm); 05/09 00:43 BP 112 / 72; Pulse 70; Resp 18; Temp 98.9; Pulse Ox 99% ; Pain 5/10; kc4 05/08 23:13 Body Mass Index 25.10 (81.65 kg, 180.34 cm) em ED Course: 05/08 22:58 Patient arrived in ED. ja2 23:13 Patient has correct armband on for positive identification. em 23:14 Triage completed. em 23:14 Arm band placed on. em 05/09 00:20 Elieser Nieves PA is PHCP. [facility] 00:20 Shakir Sifuentes MD is Attending Physician. [facility] 00:26 Annette Gaytan is Primary Nurse. kc4 00:31 Urine collected: clean catch specimen, clear. em 00:40 Group A Streptococcus Rapid Sc Sent. kc4 00:40 Strep Sent. kc4 01:44 No provider procedures requiring assistance completed. Patient did not have IV access em during this emergency room visit. Administered Medications: No medications were administered Outcome: 01:37 Discharge ordered by . [facility] 01:44 Discharged to home ambulatory. em 01:44 Condition: stable 01:44 Discharge instructions given to patient, Instructed on discharge instructions, follow up and referral plans. Demonstrated understanding of instructions, follow-up care. 01:44 Patient left the ED. em Signatures: Elieser Nieves PA PA jmm Munoz, Edgar, RN RN em Annette Gaytan kc4 Grecia Fuentes
--- NOTE | 2021-05-09 01:38 | EDPHYS ---
Physician Documentation [facility] Name: Adi Sawant Age: 25 yrs Sex: Female : 1995 Arrival Date: 05/08/2021 Time: 22:58 Bed 14 Private MD: ED Physician Shakir Sifuentes HPI: 05/09 00:01 This 25 yrs old Black Female presents to ER via Ambulatory with complaints of Headache, jmm Back Pain, Runny Nose. 01:34 Onset: The symptoms/episode began/occurred gradually, today. Modifying factors: The jmm symptoms are alleviated by nothing, the symptoms are aggravated by nothing. Associated signs and symptoms: Pertinent positives: headache. Patient states she is had multiple exposures to COVID-19. Complains of body aches, slight cough, low back pain. Historical: - Allergies: 05/08 23:14 No Known Allergies; em - PMHx: 23:14 None; em - PSHx: 23:14 None; em - Immunization history:: Client reports receiving the 2nd dose of the Covid vaccine. - Social history:: Smoking status: Patient denies any tobacco usage or history of. ROS: 05/09 01:34 Constitutional: Positive for body aches. jmm Respiratory: Positive for cough. Back: Positive for Low back pain. Neuro: Positive for headache. All other systems are negative. Exam: 01:34 Constitutional: This is a well developed, well nourished patient who is awake, alert, jmm and in no acute distress. Head/Face: atraumatic. Eyes: EOMI, no conjunctival erythema appreciated ENT: Moist Mucus Membranes Neck: Trachea midline, Supple Chest/axilla: Normal chest wall appearance and motion. Cardiovascular: Regular rate and rhythm. No edema appreciated Respiratory: Normal respirations, no respiratory distress appreciated Abdomen/GI: Non distended, soft 01:34 Skin: General appearance color normal Neuro: Awake and alert, normal gait Psych: Behavior is normal, Mood is normal, Patient is cooperative and pleasant 01:34 Back: pain, that is mild, of the lumbar area. Vital Signs: 05/08 23:13 BP 126 / 89; Pulse 103; Resp 20; Temp 98.6; Pulse Ox 99% on R/A; Weight 81.65 kg; em Height 5 ft. 11 in. (180.34 cm); 05/09 00:43 BP 112 / 72; Pulse 70; Resp 18; Temp 98.9; Pulse Ox 99% ; Pain 5/10; kc4 05/08 23:13 Body Mass Index 25.10 (81.65 kg, 180.34 cm) em MDM: 00:20 Patient medically screened. [facility] 01:35 Data reviewed: vital signs, nurses notes. Counseling: I had a detailed discussion with sandip the patient and/or guardian regarding: the historical points, exam findings, and any diagnostic results supporting the discharge/admit diagnosis, lab results, the need for outpatient follow up, to return to the emergency department if symptoms worsen or persist or if there are any questions or concerns that arise at home. ED course: Patient is alert nontoxic in appearance in the ED. no signs of respiratory distress. Patient is advised follow-up PCP and otherwise given strict return precautions.. 05/09 00:09 Order name: COVID-19/FLU A+B; Complete Time: 00:14 [facility] 05/09 00:14 Order name: Strep [facility] 05/09 00:15 Order name: Group A Streptococcus Rapid Sc; Complete Time: 01:33 [facility] 05/09 00:31 Order name: Urine Dipstick-Ancillary; Complete Time: 00:32 [facility] 05/09 00:14 Order name: Urine Dipstick-Ancillary (obtain specimen); Complete Time: 00:30 [facility] 05/09 00:15 Order name: Urine Test (obtain specimen); Complete Time: 00:30 [facility] 05/09 00:33 Order name: Urine --Ancillary (enter results); Complete Time: 00:58 2 05/09 01:30 Order name: Throat Culture EDVT Administered Medications: No medications were administered Disposition: 04:53 Co-signature as Attending Physician, Shakir Sifuentes MD I agree with the assessment and [facility] plan of care. Disposition Summary: 05/09/21 01:37 Discharge Ordered Location: Home sandip Condition: Stable sandip Diagnosis - Viral syndrome sandip Followup: sandip - With: Private Physician - When: 2 - 3 days - Reason: Recheck today's complaints, Continuance of care, Re-evaluation by your physician Discharge Instructions: - Discharge Summary Sheet seferino Forms: - Work release form seferino - Medication Reconciliation Form sandip - Thank You Letter jmm - Antibiotic Education jmm - Prescription Opioid Use jmm Signatures: Dispatcher [employer] EDMS Shakir Sifuentes MD MD cha Mickail, Joel, PA PA jmm Munoz, Edgar, RN RN em Corrections: (The following items were deleted from the chart) 05/08 23: 23:13 CORONAVIRUS+MR.LAB.BRZ ordered. EDMS EDMS : 23:13 Influenza Screen (A \T\ B)+BA.LAB.BRZ ordered. EDMS EDMS
[2021-05-09 01:50] VITALS: O2SAT 99
[2021-05-09 01:52] VITALS: BP 112/72; TEMP 98.9
== END 2021-05-09 01:44 | disposition home or self-care (01) ==
LOC: ER 22:52
DX: B34.9 Viral infection, unspecified (principal); Z20.822 Contact with and (suspected) exposure to COVID-19
CPT/HCPCS: 0240U; 81003; 81025; 87070; 87081; 99283